=== PATIENT | female | born 1970 | race Caucasian/White ===

== ENCOUNTER → 2020-04-27 | Outpatient (CLI) | payer BC ==
[~2020-04-27] MED LIST: AUGMENTIN 875-1 EACH PO; CYCLOBENZAPRINE10 MG PO; HYDROCODON-ACE1 EAC4 PO; IBUPROFEN800 MG PO
== END ==
LOC: KOH-I 08:45
DX: S83.422A Sprain of lateral collateral ligament of left knee, initial encounter (principal); S83.282A Other tear of lateral meniscus, current injury, left knee, initial encounter; M17.12 Unilateral primary osteoarthritis, left knee; M66.0 Rupture of popliteal cyst; M25.462 Effusion, left knee; R93.6 Abnormal findings on diagnostic imaging of limbs; X58.XXXA Exposure to other specified factors, initial encounter
CPT/HCPCS: 73721

== ENCOUNTER 2020-09-28 19:55 | Emergency (ER) | payer BC ==
[~2020-09-28 19:55] MED LIST changes: -AUGMENTIN 875-1 EACH PO; -HYDROCODON-ACE1 EAC4 PO
[2020-09-28 20:32] LABS: HEMOGLOBIN 14.6 gm/dl (12.3-15.3); RED BLOOD COUNT 4.26 M/UL (4.00-5.10)
[2020-09-28 20:52] LABS: BUN/CREATININE RATIO 13 (0-10)
[2020-09-28] MEDS ORDERED: AUGMENTIN 875-1 EACH PO (22:59)
[2020-09-28] MEDS ORDERED: HYDROCODON-ACE1 EAC4 PO (22:59)
== END 2020-09-28 23:15 | disposition home or self-care (01) ==
LOC: ER1 19:55
PROVIDERS: Physician Assistant
DX: S46.911A Strain of unspecified muscle, fascia and tendon at shoulder and upper arm level, right arm, initial encounter (principal); K35.80 Unspecified acute appendicitis; X58.XXXA Exposure to other specified factors, initial encounter
CPT/HCPCS: 73030; 80053; 81001; 82150; 83690; 85025; 96374; 99284; J2543; Q9967